=== PATIENT | male | born 1985 | race Caucasian/White ===

== ENCOUNTER → 2017-09-17 10:32 | Outpatient (CLI) | payer OTHER, MEDICAID, SELFPAY ==
--- NOTE | 2017-09-17 11:19 | DI.RAD.S_ITS ---
PROCEDURE: XR ANKLE LT MIN 3V INDICATIONS: ankle injury TECHNIQUE: 3 views of the ankle were acquired. COMPARISON: None. FINDINGS: Bones: No fractures or dislocations. Ankle mortise is normally aligned. No suspicious bony lesions. Posterior calcaneal spurring is present. There is diffuse tibiotalar degenerative spurring. Medial talar dome osteochondral defect measuring 5 mm is seen. Soft tissues: No tibiotalar joint effusion. Achilles tendon appears normal. IMPRESSION: No fracture identified. Subchondral lucency projecting in the medial talar dome probably osteochondral defect. Further assessment could be performed with ankle MRI without contrast. Tibiotalar degenerative spurring Posterior calcaneal spurring. Dictated by: Lion Cheng M.D. on 09/17/2017 at 12:08 Approved by: Lion Cheng M.D. on 09/17/2017 at 12:11
== END ==
PROVIDERS: PCP Family Medicine; Visit Provider Nurse Practitioner Family
DX: M25.572 Pain in left ankle and joints of left foot (principal); M77.32 Calcaneal spur, left foot
CPT/HCPCS: 73610

== ENCOUNTER → 2017-11-01 08:33 | Outpatient (CLI) | payer OTHER, MEDICAID, SELFPAY ==
--- NOTE | 2017-11-01 08:35 | DI.MRI.S_ITS ---
PROCEDURE: MR ANKLE LT WO CON INDICATIONS: PAIN IN LEFT ANKLE AND JOINT OF LEFT FOOT TECHNIQUE: Noncontrast sagittal T1 spin echo and T2 fast spin echo with fat saturation, axial proton density fast spin echo and T2 fast spin echo with fat saturation, coronal T1 spin echo and T2 fast spin echo with fat saturation through the ankle/hindfoot. COMPARISON: [facility], CR, XR ANKLE 3 VIEWS WEIGHT BEARING LEFT, 10/07/2017, 9:16. [facility], MR, LOWER EXTREM. JNT WO CONTRAST, 12/17/2008, 18:48. FINDINGS: Image quality: Diagnostic. Bones and joints: There is no acute fracture, dislocation, suspicious osseous lesion or evidence of avascular necrosis. There is an osteochondral defect identified involving the medial corner of the talar dome that measures 1.5 cm x 0.5 cm (image 11, series 3 and image 27, series 3). No definite bone fragments are seen. Minimal adjacent marrow edema is evident. Degenerative changes of the tibiotalar joint are noted. No significant degenerative changes of the midfoot joints are evident. There is mild marrow edema the tip of the medial malleolus. No significant joint effusions are appreciated. Medial structures: The deltoid ligament is edematous, but is otherwise intact. Moderate thickening involving the superomedial band of the spring ligament is identified. The plantar components of the spring ligament appear intact. There is moderate thickening and increased signal noted involving the tibialis posterior tendon at the level of the navicular. The flexor hallucis longus and flexor digitorum longus tendons are intact. The posterior tibial nerve appears to be within normal limits through the region of the tarsal tunnel. Lateral structures: The anterior and posterior distal tibiofibular ligaments are intact. The anterior and posterior talofibular ligaments also appear intact. The calcaneofibular ligament is intact. There is marked thickening and increased signal noted involving the peroneus longus tendon. Flattening and increased signal involving the peroneus brevis tendon is present. Normal fatty signal is seen within the sinus tarsi. Anterior structures: The tibialis anterior, extensor hallucis longus, and extensor digitorum longus tendons appear intact. Posterior and plantar structures: Achilles tendon is intact. Slight increase signal is noted involving the mid to distal Achilles tendon. Medial and lateral bands of the plantar fascia are of normal thickness. No abductor digiti quinti muscle atrophy to suggest Jade neuropathy. IMPRESSION: 1. Small to moderate-sized osteochondral defect of the medial talar dome. 2. Possible contusion involving the tip of the medial malleolus. No fractures. 3. Deltoid and spring ligament sprains. No full-thickness tears. 4. Moderate tibialis posterior tendinopathy without significant tearing. 5. Moderate peroneus brevis and peroneus longus tendinopathy. 6. Mild Achilles tendinopathy. Dictated by: Eloy Noble M.D. on 11/01/2017 at 9:04 Approved by: Eloy Noble M.D. on 11/01/2017 at 9:23
== END ==
PROVIDERS: Visit Provider Orthopaedic Surgery Foot and Ankle Surgery
DX: M25.572 Pain in left ankle and joints of left foot (principal); M21.962 Unspecified acquired deformity of left lower leg; S93.422A Sprain of deltoid ligament of left ankle, initial encounter
CPT/HCPCS: 73721

== ENCOUNTER → 2020-06-21 16:36 | Outpatient (CLI) | payer OTHER, SELFPAY ==
--- NOTE | 2020-06-21 16:39 | DI.CT.S_ITS ---
PROCEDURE: CT SINUS SCREEN WO CON INDICATIONS: CHRONIC PANSINUSITIS TECHNIQUE: Noncontrast 3.0 mm axial images acquired from the frontal sinuses to the mid-sella, with coronal and sagittal reformats. For radiation dose reduction, the following was used: automated exposure control, adjustment of mA and/or kV according to patient size. COMPARISON: None. FINDINGS: Image quality: Excellent. Maxillary Sinuses: No bony remodeling or destruction. Minimal to mild mucosal thickening can be seen inferiorly and on the left. Ethmoid Air Cells: No bony remodeling or destruction. Sinuses are clear. Sphenoid Sinuses: No bony remodeling or destruction. Sinuses are clear. Frontal Sinuses: No bony remodeling or destruction. Sinuses are clear. Ostiomeatal Complexes: Ostiomeatal complexes are patent. No Wyatt cells. Miscellaneous: Visualized intra-orbital contents are normal. There are small bilateral gina bullosa. There is minimal leftward nasal septal deviation. Along the medial aspect of the coronary process of the left mandible, there is a dense, well-defined bony excrescence that measures up to 2.6 cm. IMPRESSION: No significant active paranasal sinus disease is seen. There is minimal to mild mucosal thickening within the inferior left maxillary sinus. Small bilateral gina bullosa are seen, with minimal leftward nasal septal deviation. 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 Please correlate with known patient history and any prior imaging. Dictated by: Anmol Campa M.D. on 06/21/2020 at 16:36 Approved by: Anmol Campa M.D. on 06/21/2020 at 16:41
== END ==
PROVIDERS: Referring Provider Otolaryngology; Visit Provider Otolaryngology
DX: J32.4 Chronic pansinusitis (principal); R44.2 Other hallucinations; J34.89 Other specified disorders of nose and nasal sinuses
CPT/HCPCS: 70486